=== PATIENT | female | born 1965 | race Caucasian/White ===

== ENCOUNTER → 2019-05-02 | Outpatient (CLI) | payer BC ==
--- NOTE | 2019-05-02 15:48 | RAD ---
EXAM: Bilateral hands, 3 views. HISTORY: Pain. COMPARISON: 07/19/2016 FINDINGS: 3 views of both hands are obtained. There is no acute fracture, dislocation or subluxation. The alignment and joint spaces are unremarkable. There is no erosion. There is no lytic or sclerotic osseous lesion. IMPRESSION: No acute osseous finding. Electronically signed by: Robyn Ernst MD (05/02/2019 3:45 PM) [facility]
== END | disposition home or self-care (01) ==
LOC: DXRAD 14:54
PROVIDERS: ATTEND Internal Medicine Rheumatology
DX: M25.50 Pain in unspecified joint (principal); M19.90 Unspecified osteoarthritis, unspecified site
CPT/HCPCS: 73130